=== PATIENT | female | born 1985 | race Caucasian/White ===

== ENCOUNTER 2017-09-14 20:34 | Emergency (ER) | payer OTHER ==
[2017-09-14 21:55] LABS: ALB/GLOB RATIO 1.5 (1.0-2.1); ALBUMIN 4.9 g/dL (3.5-5.0); ALT/SGPT 71 U/L (9-52); AST/SGOT 65 U/L (14-36); BLOOD UREA NITROGEN 7 mg/dL (7-17); CALCIUM 9.6 mg/dl (8.6-10.4); GFR AFRICAN-AMERICAN > 60; GFR NON-AFRICAN AMERICAN > 60
[2017-09-14 22:15] LABS: BASO % 0.2 % (0.0-2.0); EOS % 0.1 % (0.0-4.0); HEMOGLOBIN 15.7 g/dL (11.0-16.0); LYMPH # 0.6 K/uL (1.0-4.3); LYMPH % 3.2 % (20.0-40.0); MEAN CELL VOLUME 96.7 fL (81.0-99.0); MEAN CORPUSCULAR HEMOGLOBIN 32.9 pg (27.0-31.0); MEAN CORPUSCULAR HGB CONC 34.1 g/dL (33.0-37.0); MEAN PLATELET VOLUME 7.8 fL (7.2-11.7); MONO # 0.5 K/uL (0.0-0.8); NEUT # 16.3 K/uL (1.8-7.0); NEUT % 93.5 % (50.0-75.0); PLATELET COUNT 170 K/uL (130-400); RBC 4.78 Mil/uL (3.80-5.20); RED CELL DISTRIBUTION WIDTH 12.8 % (11.5-14.5); WHITE BLOOD COUNT 17.5 K/uL (4.8-10.8)
[2017-09-14 22:37] LABS: SQUAMOUS EPITHIAL 18 /hpf (0-5); URINE BILIRUBIN NEGATIVE (NEGATIVE); URINE CLARITY Hazy (Clear); URINE COLOR Yellow (YELLOW); URINE GLUCOSE (UA) NORMAL (Normal); URINE LEUKOCYTE ESTERASE NEG Leu/uL (Negative); URINE PROTEIN 1+ mg/dL (NEGATIVE); URINE UROBILINOGEN NORMAL mg/dL (0.2-1.0)
[2017-09-14 22:38] LABS: URINE BLOOD 1+ (NEGATIVE)
[2017-09-14 22:43] LABS: LYMPHOCYTE 2 % (20-40); MONOCYTE 3 % (0-10); NEUTROPHIL 95 % (50-75); TOTAL CELLS COUNTED 100
[2017-09-14 22:44] LABS: PLATELET ESTIMATE NORMAL (NORMAL)
[2017-09-14 22:45] LABS: PLATELET CLUMPS PRESENT
[2017-09-14 23:09] VITALS: O2SAT 99
[2017-09-14 23:13] LABS: BARBITURATES, UR NEGATIVE (NEGATIVE); OPIATES, UR NEGATIVE (NEGATIVE)
[2017-09-14 23:16] LABS: BENZODIAZEPINES, UR POSITIVE (NEGATIVE); PHENCYCLIDINE, UR POSITIVE (NEGATIVE)
--- NOTE | 2017-09-15 00:28 | C.PDOC ---
History Of Present Illness Pt was BIBEMS/Police due to public intoxication. Pt is uncooperative. Time Seen by Provider: 09/14/17 20:52 Chief Complaint (Nursing): Substance Abuse History Per: Patient, EMS History/Exam Limitations: intoxication Onset/Duration Of Symptoms: Unknown Current Symptoms Are (Timing): Still Present Suicide/Self Injury Attempted (Context): None Modifying Factor(s): Alcohol, Marijuana, Other (PCP) Severity: Severe Associated Symptoms: Agitation Additional History Per: Law Enforcement Past Medical History Reviewed: Historical Data, Nursing Documentation, Vital Signs Vital Signs: Last Vital Signs Temp 98.7 F 09/15/17 00:41 Pulse 81 09/15/17 00:41 Resp 20 09/15/17 00:41 BP 143/87 09/15/17 00:41 Pulse Ox 99 09/15/17 00:41 - Medical History Other PMH: Unknown Family History: States: Unknown Family Hx - Immunization History Hx Tetanus Toxoid Vaccination: (unknown) Hx Influenza Vaccination: (unknown) Hx Pneumococcal Vaccination: (unknown) Review Of Systems Review Of Systems: ROS cannot be obtained secondary to pt's inabilty to answer questions. Physical Exam - Physical Exam Appears: Non-toxic, Agitated, Other (Uncooperative) Skin: Normal Color, Warm, Dry Head: Atraumatic Eye(s): bilateral: PERRL Neck: Normal ROM, Supple Cardiovascular: Rhythm Regular Respiratory: Normal Breath Sounds, No Accessory Muscle Use Gastrointestinal/Abdominal: Soft Back: No CVA Tenderness Extremity: Normal ROM, Tenderness (left elbow area) Neurological/Psych: Inappropriate Response To Command, Other (Moving all extremities) ED Course And Treatment - Laboratory Results Result Diagrams: 09/14/17 21:33 09/14/17 21:33 Lab Interpretation: Abnormal Interpretation Of Abnormal: Leukocytosis Urine POC: Negative O2 Sat by Pulse Oximetry: 99 Pulse Ox Interpretation: Normal Progress Note: Pt became more cooperative. Pt is no longer at risk to harm herself or others. AAOx3. I ordered a CXR to further evaluate the Leukocytosis and a left elbow x-rays to r/o fx, however I was informed by the staff that the pt walked out during evaluation. Disposition - Disposition Disposition: ELOPEMENT - ER ONLY Disposition Time: 00:47 Condition: UNKNOWN - Clinical Impression Clinical Impression: Patient left before treatment completed, PCP (phencyclidine) abuse
[2017-09-15 00:42] VITALS: BP 143/87; PULSE 81; RESP 20; TEMP 98.7
== END 2017-09-15 00:44 | disposition left against medical advice (07) ==
LOC: MERGE 20:34 → C.ER 20:34
DX: F16.10 Hallucinogen abuse, uncomplicated (principal)
CPT/HCPCS: 80053; 80320; 80324; 80345; 80346; 80349; 80353; 80358; 80361; 81001; 83992; 84703; 85025; 96372; 99284; J1630; J2060